=== PATIENT | female | born 1965 | race Caucasian/White ===

== ENCOUNTER 2021-07-13 00:18 | Day surgery (SDC) | payer OTHER, SELFPAY ==
[2021-06-29 14:57] VITALS: BMI 38.7
[2021-07-13 07:49] VITALS: BMI 38.6
[2021-07-13 07:50] VITALS: BP 133/88; PULSE 77; RESP 18; TEMP 36; O2SAT 98
[2021-07-13] MEDS: LACTATED RINGERS 1,000 ML 150 ML IV CONT (08:01)
--- NOTE | 2021-07-13 08:10 | P.PNAN_ITS ---
Anes - Initial Pre Proc Eval Procedure: Operation Date: 07/13/21 08:45 Proposed Procedures p Screening Colonoscopy - Raleigh Montez MD Date/Time: 07/13/21 08:10 Surgeon: Raleigh Montez MD Pre Op Diagnosis: neoplasm screening Patient Data Age: 55 Gender: F Height: 1.68 m Weight: 108.5 kg Last Vital Signs Temp 36.0 C L 07/13/21 07:50 Pulse 77 07/13/21 07:50 Resp 18 07/13/21 07:50 BP 133/88 07/13/21 07:50 Pulse Ox 98 07/13/21 07:50 Allergies Allergy/AdvReac Type Severity Reaction Status Date / Time No Known Allergies Allergy Unknown Verified 07/13/21 07:49 Home Medications Medication Instructions Recorded Confirmed Type cholecalciferol (vitamin D3) 50 2,000 unit PO DAILY 04/13/19 06/29/21 History mcg (2,000 unit) tablet escitalopram oxalate 10 mg tablet 10 mg PO DAILY 11/01/20 06/29/21 History Patient hx anesthesia problems: none Family hx anesthesia problems: none Results Review: All pre-operative results and documents have been reviewed as part of the pre-operative evaluation. FOR[facility]LY [facility], [facility] Past Medical History Medical History Depression Family History Family History Sibling Family history of pancreatic cancer Father Family history of cardiovascular disease Mother Family history of pancreatic cancer, Onset Age: 74 Social History Social History Social History: Patient drinks caffeine once daily. 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[employer] Gender identity (if verbalized by the patient): Female Sexual Orientation (if Verbalized by the Patient): Straight or Heterosexual Anes - Eval Final PreProcedure Day of Procedure 07/13/21 08:10 Patient weight: overweight Heart: regular rate and rhythm Lungs: clear to auscultation Airway: Mallampati scale class II Neurological: alert and oriented Last oral intake: >/= 8 hours ASA classification: II Emergent: no Anesthetic plan: proceed Anesthesia type and monitoring: general GIVS and standard monitoring Results Review: All pre-operative results and documents have been reviewed as part of the pre-operative evaluation. Informed Consent: The patient's anesthetic plan and its attendant risks and benefits were discussed with the patient/family/POA. Questions were solicited and answers provided to the satisfaction of the patient/family/POA.
--- NOTE | 2021-07-13 08:24 | PM.HPGS ---
History of Present Illness History of Present Illness Consent: Risks, benefits, and alternatives have been discussed and questions answered. Patient agrees to proceed with procedure. Chief complaint: neoplasm screening Narrative: Marcela Girard is a 55 year old female here for screening colonoscopy, last one about 10 years ago. Review of Systems Constitutional: Constitutional: Denies headache(s) and Denies weakness Eyes: Eyes: Denies blurry vision ENT: Reports Normal hearing present, Denies headache(s) and Denies neck pain Cardiovascular: Cardiovascular: Denies chest pain and Denies dyspnea Respiratory: Respiratory: Denies dyspnea Gastrointestinal: Gastrointestinal: Reports no additional gastrointestinal complaints Genitourinary: Genitourinary: Denies dysuria Musculoskeletal: Musculoskeletal: Denies neck pain Integumentary/Breasts: Skin/Breast: Denies dry skin Neurologic: Reports Normal hearing present, Denies headache(s) and Denies weakness Psychiatric: Psychiatric: Denies anxiety Endocrine: Endocrine: Denies change in body appearance Hematologic/Lymphatic: Hematologic/Lymphatic: Denies easy bleeding Allergic/Immunologic: Allergic/Immunologic: Denies urticaria PMFSH Past Medical History Medical History Depression Family History Family History Sibling Family history of pancreatic cancer Father Family history of cardiovascular disease Mother Family history of pancreatic cancer, Onset Age: 74 Social History Social History Social History: Patient drinks caffeine once daily. 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 identity (if verbalized by the patient): Female Sexual Orientation (if Verbalized by the Patient): Straight or Heterosexual Meds Home Medications and Allergies Home Medications Medication Instructions Recorded Confirmed Type cholecalciferol (vitamin D3) 50 2,000 unit PO DAILY 04/13/19 06/29/21 History mcg (2,000 unit) tablet escitalopram oxalate 10 mg tablet 10 mg PO DAILY 11/01/20 06/29/21 History Allergies Allergy/AdvReac Type Severity Reaction Status Date / Time No Known Allergies Allergy Unknown Verified 07/13/21 07:49 Vital Signs Vital Signs - 24 hr 07/13/21 07:50 Temperature 96.8 F L Pulse Rate 77 Respiratory Rate 18 Blood Pressure 133/88 Pulse Oximetry 98 Exam Const: General: comfortable and no acute distress HENMT: General nose exam: Normal nares present Eyes: General: appearance normal, both eyes and all related structures Neck: Neck: no JVD Resp: Auscultation: clear to auscultation bilaterally Cardio: Rate: regular rate Rhythm: regular rhythm GI: Inspection: non-distended GI Palp: Yes Soft to palpation Skin: General skin exam: normal color Neuro: General: gait normal Speech: normal speech Extrem: General: normal to inspection Psych: Mental Status: mental status grossly normal Assessment and Plan Assessment and plan (1) Colon cancer screening: Code(s): Z12.11 - Encounter for screening for malignant neoplasm of colon Status: Acute Assessment and Plan: colonoscopy
[2021-07-13 08:51] VITALS: BP 108/68; PULSE 70; RESP 14; O2SAT 98
[2021-07-13 09:01] VITALS: BP 109/77; PULSE 73; RESP 15; O2SAT 92
[2021-07-13 09:11] VITALS: BP 115/81; PULSE 65; RESP 13; O2SAT 96
== END 2021-07-13 09:22 | disposition home or self-care (01) ==
PROVIDERS: PCP Emergency Medicine; Visit Provider Internal Medicine Gastroenterology
PROC: 0DJD8ZZ Inspection of Lower Intestinal Tract, Via Natural or Artificial Opening Endoscopic (ICD-10-PCS; CPT 45378; principal; 2021-07-13 08:45)
DX: Z12.11 Encounter for screening for malignant neoplasm of colon (principal); K63.5 Polyp of colon; F32.9 Major depressive disorder, single episode, unspecified
CPT/HCPCS: 45385; 88305; J2001; J2704; J7120

== ENCOUNTER 2023-05-15 07:18 | Outpatient (CLI) | payer OTHER, SELFPAY ==
--- NOTE | ~2023-05-15 | MM_ITS ---
EXAMINATION: MM screening sharmin BI w brittany HISTORY: Screening mammogram TECHNIQUE: Craniocaudal and mediolateral oblique 3-D tomosynthesis images were obtained and synthetic 2-D images were generated. CAD analysis was submitted and interpreted. COMPARISON: 02/16/2018 bilateral screening mammogram BREAST PARENCHYMAL COMPOSITION: The breasts are heterogeneously dense, which may obscure small masses . FINDINGS: Stable benign fibroglandular asymmetry. Occasional bilateral benign calcifications. There i s no evidence of suspicious mass, calcification, or architectural distortion to suggest malignancy in either breast. There has been no suspicious interval change. IMPRESSION: 1. No mammographic evidence of malignancy. 2. Recommend routine screening mammography in one year. BI-RADS Category 2: Benign finding(s). Reviewed, dictated and finalized at location A. LIFE OFFICER
== END 2023-05-15 07:19 | disposition home or self-care (01) ==
LOC: CHSIMG 07:20
PROVIDERS: PCP Emergency Medicine; Visit Provider Emergency Medicine
DX: Z12.31 Encounter for screening mammogram for malignant neoplasm of breast (principal)
CPT/HCPCS: 77063; 77067

== ENCOUNTER 2024-10-05 01:10 | Day surgery (SDC) | payer OTHER, SELFPAY ==
[2024-09-28 10:38] VITALS: BMI 35.6
--- OUTSIDE RECORDS SUMMARY | 2024-10-05 01:12 | XMS_ITS | Encounter Summary ---
Author Organization [facility] Address [address] [place] [address] Care Team Providers Care Ui Ux Web Developer Name Role Phone Rasta Walker MD Primary Care Provider Encounter Details Date Type Department Care Team (Late st Contact Info) Description 04/06/2003 Outpatient Historical [facility] Maternal and Ground Floor S New [facility] [address] [place] [phone] Tono Jeong MD [address] [facility] [address] [place] [phone] Social History Tobacco Use Types Packs/Day Years Used Date Smoking Tobacco: Never Assessed Comments Unknown Sex and Gender Information Value Date Recorded Sex Assigned at Not on file 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
--- OUTSIDE RECORDS SUMMARY | 2024-10-05 01:12 | XMS_ITS | Encounter Summary ---
Author Organization [facility] Address [address] [place] [address] Care Team Providers Care Airline Pilot Name Role Phone Rasta Walker MD Primary Care Provider Encounter Details Date Type Department Care Team (Late st Contact Info) Description 03/07/2005 Outpatient Historical [facility] Maternal and Ground Floor S [address] [facility] [address] [place] [phone] Alvin Pretty MD [address] [place] [phone] Social History Tobacco Use Types Packs/Day Years Used Date Smoking Tobacco: Never Assessed Comments Unknown Sex and Gender Information Value Date Recorded Sex Assigned at Not on file 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
--- OUTSIDE RECORDS SUMMARY | 2024-10-05 01:12 | XMS_ITS | Encounter Summary ---
Author Organization [facility] Address 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 Gender Identity Not on file Sexual Orientation Not on file documented as of this encounter Plan of Treatment Not on file documented as of this encounter Visit Diagnoses Diagnosis Elderly multigravida with antepartum condition or complication- Primary documented in this encounter Additional Health Concerns Infection Onset Date Last Indicated Resolved Time R/O COVID-19 02/04/2020 02/04/2020 02/05/2020 3:54 AM CDT documented as of this encounter Care Teams Wireless Sales Associate Relationship Specialty Start Date End Date Rasta Walker MD [address] [place] [address] PCP - General Internal Medicine 02/03/20 documented as of this encounter
--- OUTSIDE RECORDS SUMMARY | 2024-10-05 01:12 | XMS_ITS | Encounter Summary ---
Author Organization [facility] Address [address] [place] [address] Care Team Providers Care Systems Auditor Name Role Phone Rasta Walker MD Primary Care Provider Encounter Details Date Type Department Care Team (Late st Contact Info) Description 03/25/2005 Outpatient Historical [facility] Maternal and Ground Floor S [facility] [address] [place] [phone] Tono Jeong MD [address] [facility] [address] [place] [phone] Social History Tobacco Use Types Packs/Day Years Used Date Smoking Tobacco: Never Assessed Comments Unknown Sex and Gender Information Value Date Recorded Sex Assigned at Not on file 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
--- OUTSIDE RECORDS SUMMARY | 2024-10-05 01:12 | XMS_ITS | Encounter Summary ---
Author Organization [facility] Address [address] [place] [address] Care Team Providers Care Acting Manager Name Role Phone Rasta Walker MD Primary Care Provider [phone] Encounter Details Date Type Department Care Team (Late st Contact Info) Description 03/04/2003 Outpatient Historical [facility] Maternal and Ground Floor S [facility] [address] [place] [phone] Alvin Pretty MD [address] [place] [phone] Social History Tobacco Use Types Packs/Day Years Used Date Smoking Tobacco: Never Assessed Comments Unknown Sex and Gender Information Value Date Recorded Sex Assigned at Not on file 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 Sex Female 4:28 AM BOX TENDER Gender Identity Not on file Sexual Orientation Not on file documented as of this encounter Plan of Treatment Not on file documented as of this encounter Visit Diagnoses Not on filedocumented in this encounter Additional Health Concerns Infection Onset Date Last Indicated Resolved Time R/O COVID-19 02/04/2020 02/04/2020 02/05/2020 3:54 AM CDT documented as of this encounter Care Teams Acting Manager Relationship Specialty Start Date End Date Rasta Walker MD [address] [place] [phone] PCP - General Internal Medicine 02/03/20 documented as of this encounter
--- OUTSIDE RECORDS SUMMARY | 2024-10-05 01:12 | XMS_ITS | Encounter Summary ---
Author Organization [facility] Address 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 Gender Identity Not on file Sexual Orientation Not on file documented as of this encounter Plan of Treatment Not on file documented as of this encounter Visit Diagnoses Not on filedocumented in this encounter Additional Health Concerns Infection Onset Date Last Indicated Resolved Time R/O COVID-19 02/04/2020 02/04/2020 02/05/2020 3:5 4 AM CDT documented as of this encounter Care Teams Photogrammetry Airplane Pilot Relationship Specialty Start Date End Date Rasta Walker MD [address] [place] [phone] PCP - General Internal Medicine 02/03/20 documented as of this encounter
--- OUTSIDE RECORDS SUMMARY | 2024-10-05 01:12 | XMS_ITS | Encounter Summary ---
Author Organization [employer] Address 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 Gender Identity Not on file Sexual Orientation Not on file documented as of this encounter Plan of Treatment Not on file documented as of this encounter Procedures Procedure Name Priority Date/Time Associated Diagnosis Comments CHROMOSOME ANALYSIS, AMNIOTIC FLUID Routine 11/13/2004 5:08 PM CDT ALPHA FETOPROTEIN, AMNIOTIC FLUID Routine 11/13/2004 5:08 PM CDT documented in this encounter Results * ALPHA FETOPROTEIN, AMNIOTIC FLUID (11/13/2004 5:08 PM CDT) CYTOGENETICS INDICATIONS Maternal age >34 INTERFACE SYSTEM WEEKS OF GESTATION 17.6 Weeks INTERFACE SYSTEM GEST CALC METHOD US INT ERFACE SYSTEM DATE OF ULTRASOUND 1: 356412:0.000 000:0:0 INTERFACE SYSTEM DATE OF DRAW : 142002:0.000 000:0:0 INTERFACE SYSTEM MULTIPLE OF MEDIAN 0.75 0.00 - 1.90 MoM INTERFACE SYSTEM AFP AMNIOTIC FLD 8.52 ug/mL INT ERFACE SYSTEM AFP REFERENCE RANGE up to 22.80 ug/mL INTERFACE SYSTEM AFP RISK INTERP INTE RFACE SYSTEM Comment: INTERPRETATION: This amniotic fluid AFP is within expected limits for a at this gestational age. A normal amniotic fluid AFP rules out open spina bifida in approximately 96% of fetuses. 11/13/2004 5:08 PM CDT Anthony Ballesteros Jr., MD BODY FLUIDS AND S TOOLS Final Result Performing Organization Address [facility] Phone Number INTERFACE SYSTEM Refer to clinic/hospital department * CHROMOSOME ANALYSIS, AMNIOTIC FLUID (11/13/2004 5:08 PM CDT) Pathologist [facility] CYTOGENETICS SPECIMEN Amniotic Fluid INTERFACE SYSTEM CHROMOSOME RESULTS I NTERFACE SYSTEM Comment: RESULTS: 46,XX Female karyotype-SEE BELOW INTERPRETATION: This analysis shows no evidence of clinically significant numerical or structural chromosome abnormalities. The standard cytogenetic methodology utilized in this analysis does not routinely detect small rearrangements and low level mosaicism, and cannot detect microdeletions. The number of colonies examined does not meet our laboratory standard of 15. However, the overall incidence of mosaicism detected in amniotic fluid samples is reported to be low (0.1-0.3%; Sagrario, L.Y.F., Diagnosis of Chromosomal Abnormalities through Amniocentesis. In Jami Dial ed., Genetic Disorders and the Fetus, 4th edition. [place]: [facility] [employer]. 1998. Pp. 203). 11/13/2004 5:08 PM CDT Anthony Ballesteros Jr., MD BODY FLUIDS AND S TOOLS Final Result Performing Organization Address [facility] Phone Number INTERFACE SYSTEM Refer to clinic/hospital department documented in this encounter Visit Diagnoses Diagnosis Other screening- Primary Other specified screening documented in this encounter Additional Health Concerns Infection Onset Date Last Indicated Resolved Time R/O COVID-19 02/04/2020 02/04/2020 02/05/2020 3:54 AM CDT documented as of this encounter Care Teams Brake Adjuster Relationship Specialty Start Date End Date Rasta Walker MD [address] [phone] PCP - General Internal Medicine 02/03/20 documented as of this encounter
--- OUTSIDE RECORDS SUMMARY | 2024-10-05 01:12 | XMS_ITS | Encounter Summary ---
Author Organization [facility] Address [address] [place] [address] Care Team Providers Care Pasting Inspector Name Role Phone Rasta Walker MD Primary Care Provider Encounter Details Date Type Department Care Team (Latest Contact Info) Description 08/25/2000 Inpatient Historical [facility] PATIENT IN A BED Ambar Faith MD [address] [facility] [address] [place] [address] Other current maternal conditions classifiable elsewhere, antepartum (Primary Dx) Social History Tobacco Use Types Packs/Day Years Used Date Smoking Tobacco: Never Assessed Comments Unknown Sex and Gender Information Value Date Recorded Sex Assigned at Not on file 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 Gender Identity Not on file Sexual Orientation Not on file documented as of this encounter Plan of Treatment Not on file documented as of this encounter Visit Diagnoses Diagnosis Other current maternal conditions classifiable elsewhere, antepartum- Primary documented in this encounter Additional Health Concerns Infection Onset Date Last Indicated Resolved Time R/O COVID-19 02/04/2020 02/04/2020 02/05/2020 3:54 AM CDT documented as of this encounter Care Teams Pasting Inspector Relationship Specialty Start Date End Date Rasta Walker MD [address] [place] [phone] PCP - General Internal Medicine 02/03/20 documented as of this encounter
--- OUTSIDE RECORDS SUMMARY | 2024-10-05 01:12 | XMS_ITS | Encounter Summary ---
Author Organization [facility] Address 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
--- OUTSIDE RECORDS SUMMARY | 2024-10-05 01:12 | XMS_ITS | Encounter Summary ---
Author Organization [facility] Address [address] [place] [address] Care Team Providers Care Auto Wheel Alignment Specialist Name Role Phone Rasta Walker MD Primary Care Provider Encounter Details Date Type Department Care Team (Late st Contact Info) Description 09/02/2000 Outpatient Historical Division of Neurology [address] [facility] [address] [address] Reggie Epstein MD [address] [facility] [address] [place] [address] Social History Tobacco Use Types Packs/Day Years Used Date Smoking Tobacco: Never Assessed Comments Unknown Sex and Gender Information Value Date Recorded Sex Assigned at Not on file 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
--- OUTSIDE RECORDS SUMMARY | 2024-10-05 01:12 | XMS_ITS | Encounter Summary ---
Author Organization [facility] Address [address] [place] [address] Care Team Providers Care Hand Polisher Name Role Phone Rasta Walker MD Primary Care Provider Encounter Details Date Type Department Care Team (Latest Contact Info) Description 09/11/2000 Outpatient Historical [facility] Ambar Faith MD [address] [facility] [address] [address] [place] [address] Unspecified high-risk (Primary Dx) Social History Tobacco Use Types Packs/Day Years Used Date Smoking Tobacco: Never Assessed Comments Unknown Sex and Gender Information Value Date Recorded Sex Assigned at Not on file 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 Gender Identity Not on file Sexual Orientation Not on file documented as of this encounter Plan of Treatment Not on file documented as of this encounter Visit Diagnoses Diagnosis Unspecified high-risk - Primary documented in this encounter Additional Health Concerns Infection Onset Date Last Indicated Resolved Time R/O COVID-19 02/04/2020 02/04/2020 02/05/2020 3:54 AM CDT documented as of this encounter Care Teams Hand Polisher Relationship Specialty Start Date End Date Rasta Walker MD [address] [place] [address] PCP - General Internal Medicine 02/03/20 documented as of this encounter
--- OUTSIDE RECORDS SUMMARY | 2024-10-05 01:12 | XMS_ITS | Encounter Summary ---
Author Organization [employer] Address 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 Gender Identity Not on file Sexual Orientation Not on file documented as of this encounter Plan of Treatment Not on file documented as of this encounter Procedures Procedure Name Priority Date/Time Associated Diagnosis Comments BASIC METABOLIC PANEL Routine 08/25/2007 5:00 AM CDT CBC WITH DIFFERENTIAL Routine 08/25/2007 4:[address] HEAD WO CONTRAST Stat 08/24/2007 2 :54 PM CDT PT AND APTT Stat 08/24/2007 1:35 PM CDT CBC WITH DIFFERENTIAL Stat 08/24/2007 1:35 PM CDT C-REACTIVE PROTEIN Stat 08/24/2007 1: 35 PM CDT COMPREHENSIVE METABOLIC PANEL Stat 08/24/2007 1:35 PM CDT documented in this encounter Results * (ABNORMAL) BASIC METABOLIC PANEL (08/25/2007 5:00 AM CDT) CHLORIDE 108 96 - 108 mmol/L [facility] GLUCOSE 90 65 - 99 mg/dL [facility] SODIUM 137 135 - 145 mmol/L [facility] CALCIUM 8.2(L) 8.4 - 10.2 mg/dL [facility] CO2 24 22 - 30 mmol/L [facility] CREATININE 0.56 0.51 - 0.95 mg/dL [facility] POTASSIUM 3.9 3.5 - 4.9 mmol/L [facility] BUN 13 6 - 20 mg/dL [facility] GFR, >60 >=60 mL/min/1. 7 sq meter [facility] GFR >60 >=60 mL/min/1. 7 sq meter [facility] Comment: Estimated GFR rate interpretative information for both Americans and non- Americans is available on the [facility] Intranet at: [email or web address] Select: Lab Policies and Procedures Select: Reference Ranges - GFR Blood specimen (specimen) 08/25/2007 5:00 AM CDT 08/25/2007 6:39 AM CDT Rachel Zamarripa MD CHEMISTRY ORDERABLES Edited [facility] [address] [place] [address] * (ABNORMAL) CBC WITH DIFFERENTIAL (08/25/2007 4:45 AM CDT) WBC 6.1 4.0 - 9.8 K/uL [facility] MCH 29.7 27.2 - 32.6 pg [facility] MPV 9.1(L) 9.3 - 12.4 fL [facility] HEMATOCRIT 39.8 35.5 - 44.0 % [facility] RDW-STDEV 39.4 37.1 - 48.7 fL [facility] RBC 4.45 3.90 - 4.90 M/uL [facility] MCHC 33.2 31.5 - 35.5 % [facility] MCV 89.4 82.0 - 99.0 fL [facility] PLATELETS 268 140 - 350 K/uL [facility] HEMOGLOBIN 13.2 11.8 - 14.8 g/dL [facility] RDW 12.3 11.5 - 14.5 % [facility] LYMPHOCYTES 35 16 - 45 % [facility] LYMPHOCYTE ABSOLUTE 2.15 0.70 - 4.50 K/uL [facility] BASOPHILS 1 0 - 2 % [facility] BASOPHILS ABSOLUTE 0.04 0.00 - 0.20 K/uL [facility] MONOCYTES 6 3 - 13 % [facility] MONOCYTE ABSOLUTE 0.38 0.10 - 1.30 K/uL [facility] NEUTROPHILS 55 45 - 70 % [facility] NEUTROPHIL ABSOLUTE 3.32 1.90 - 7.00 K/uL [facility] EOSINOPHILS 3 0 - 7 % [facility] EOSINOPHIL ABSOLUTE 0.21 0.00 - 0.70 K/uL [facility] Blood specimen (specimen) 08/25/2007 4:45 AM CDT 08/25/2007 6:39 AM CDT us Rachel Zamarripa MD HEMATOLOGY ORDERABLES Edite d INTERFACE SYSTEM Refer to clinic/hospital department [facility] [address] [place] [address] * CT HEAD WO CONTRAST (08/24/2007 2:54 PM CDT) Anatomical Region Laterality Modality Head Other 08/24/2007 2:54 PM CDT Narrative 08/24/2007 3:14 PM CDT [facility] [address] [place], [place] [address] Admit Date: 08/24/2007 MCGUIREMOE LOFTON Senthil Sex: F Admit Prov: JON SANTANA Date: 1965 Primary Care Prov: FELICIANO LITTLEJOHN CMRN: [id number] [facility] SSN: [id number] IMAGING SERVICES Ordering Prov: N/A Accession Number: [id number] Interpretation CT head without contrast 08/24/2007. History: Headache Findings: The ventricles are normal in size and position without midline shift or mass effect. No intracranial hemorrhage is seen. The riley-white differentiation is preserved. A punctate calcified density is seen at foramen of Monro. There are no abnormal extra-axial collections. The calvarium is intact. Impression: No evidence of acute abnormality. If patient's symptoms persist, MRI study is recommended. . Dictated by: LAVONNE LAUREN 08/24/2007 15:13 Electronically signed by: LAVONNE LAUREN 08/24/2007 15:14 Procedure Note Lavonne Lauren - 08/24/2007 [facility] [address] [place], [place] [address] Admit Date: 08/24/2007 SHAYLA MOE A Sex: F Admit Prov: JON SANTANA Date: 1965 Primary Care Prov: FELICIANO LITTLEJOHN CMRN: [id number] [facility]: [facility] SSN: [id number] IMAGING SERVICES Ordering Prov: N/A Interpretation CT head without contrast 08/24/2007. History: Headache Findings: The ventricles are normal in size and position withoutmidline shift or mass effect. No intracranial hemorrhage is seen. Thegray-white differentiation is preserved. A punctate calcified density is seenat foramen of Monro. There are no abnormal extra-axial collections.The calvarium is intact. Impression: No evidence of acute abnormality. If patient's symptoms persist, MRI study is recommended. . Dictated by: LAVONNE LAUREN 08/24/2007 15:13 Electronically signed by: LAVONNE LAUREN 08/24/2007 15:[address] ORDERABLES Final Result * (ABNORMAL) CBC WITH DIFFERENTIAL (08/24/2007 1:35 PM CDT) RDW 12.4 11.5 - 14.5 % [facility] WBC 7.4 4.0 - 9.8 K/uL [facility] MCH 30.1 27.2 - 32.6 pg [facility] MPV 8.7(L) 9.3 - 12.4 fL [facility] HEMATOCRIT 41.4 35.5 - 44.0 % [facility] RDW-STDEV 39.5 37.1 - 48.7 fL [facility] RBC 4.69 3.90 - 4.90 M/uL [facility] MCHC 34.1 31.5 - 35.5 % [facility] MCV 88.3 82.0 - 99.0 fL [facility] PLATELETS 269 140 - 350 K/uL [facility] HEMOGLOBIN 14.1 11.8 - 14.8 g/dL [facility] EOSINOPHILS 1 0 - 7 % [facility] EOSINOPHIL ABSOLUTE 0.08 0.00 - 0.70 K/uL [facility] NEUTROPHILS 65 45 - 70 % [facility] LYMPHOCYTES 29 16 - 45 % [facility] LYMPHOCYTE ABSOLUTE 2.17 0.70 - 4.50 K/uL [facility] BASOPHILS 1 0 - 2 % [facility] BASOPHILS ABSOLUTE 0.04 0.00 - 0.20 K/uL [facility] MONOCYTES 4 3 - 13 % [facility] MONOCYTE ABSOLUTE 0.30 0.10 - 1.30 K/uL [facility] NEUTROPHIL ABSOLUTE 4.82 1.90 - 7.00 K/uL [facility] Blood specimen (specimen) 08/24/2007 1:35 PM CDT 08/24/2007 2:00 PM CDT John Lockhart DO HEMATOLOGY ORDERABLES Edited INTERFACE SYSTEM Refer to clinic/hospital department [facility] [address] [place] [address] * PT AND APTT (08/24/2007 1:35 PM CDT) PROTIME 14.0 12.7 - 15.1 Seconds [facility] INR 1.1 0.9 - 1.1 [facility] Comment: INR Therapeutic Range: Adult: 2.0 - 3.0 for pulmonary embolism or prophylaxis against venous thrombosis or systemic embolization. 2.0 - 3.0 for patients with tissue heart valves. 2.5 - 3.5 for patients with mechanical heart valves or post SD. Pediatric (12 years and under): 1.5 - 3.0 Although the target range in children is not well established, INR values of 1.5 - 3.0 are recommended for most patients. Higher values have been used in children with prosthetic cardiac valves and hereditary clotting disorders. (<3 days) therapeutic ranges have not been established. PTT 29.6 24.4 - 36.4 Seconds [facility] Comment: PTT Therapeutic Range: Heparin Level PTT (seconds) <0.10 units/mL <53 0.10 - 0.30 units/mL 53 - 67 0.30 - 0.70 units/mL* 67 - 95* 0.70 - 1.00 units/mL 95 - 116 *corresponds to therapeutic range for unfractionated heparin Blood specimen (specimen) 08/24/2007 1:35 PM CDT 08/24/2007 2:00 PM CDT John Lockhart DO HEMATOLOGY ORDERABLES Edited Performing Organization Address City/[facility]/ZIP Co de Phone Number [facility] [address] [place] [address] * C-REACTIVE PROTEIN (08/24/2007 1:35 PM CDT) CRP <0.2 0.0 - 0.8 mg/dL [facility] Blood specimen (specimen) 08/24/2007 1:35 PM CDT 08/24/2007 2:00 PM CDT John Lockhart DO CHEMISTRY ORDERABLES Final Re sult Performing Organization Address [facility]/ZIP Co de Phone Number [facility] [address] [place] [address] * (ABNORMAL) COMPREHENSIVE METABOLIC PANEL (08/24/2007 1:35 PM CDT) CALCIUM 8.5 8.4 - 10.2 mg/dL [facility] ALBUMIN 4.1 3.4 - 4.8 g/dL [facility] CHLORIDE 105 96 - 108 mmol/L [facility] CREATININE 0.52 0.51 - 0.95 mg/dL [facility] ALT 16 0 - 31 U/L [facility] SODIUM 138 135 - 145 mmol/L [facility] ALKALINE PHOSPHATASE 61 35 - 104 U/L [facility] CO2 24 22 - 30 mmol/L [facility] BILIRUBIN TOTAL 1.2(H) 0.2 - 1.0 mg/dL [facility] POTASSIUM 3.8 3.5 - 4.9 mmol/L [facility] TOTAL PROTEIN 6.9 6.3 - 8.6 g/dL [facility] GLUCOSE 87 65 - 99 mg/dL [facility] AST 15 12 - 32 U/L [facility] BUN 9 6 - 20 mg/dL [facility] GFR, >60 >=60 mL/min/1. 7 sq meter [facility] GFR >60 >=60 mL/min/1. 7 sq meter [facility] Comment: Estimated GFR rate interpretative information for both Americans and non- Americans is available on the [facility] Intranet at: [email or web address] Select: Lab Policies and Procedures Select: Reference Ranges - GFR Blood specimen (specimen) 08/24/2007 1:35 PM CDT 08/24/2007 2:00 PM CDT John Lockhart DO CHEMISTRY ORDERABLES Edited [facility] [address] [place] [address] documented in this encounter Visit Diagnoses Not on filedocumented in this encounter Additional Health Concerns Infection Onset Date Last Indicated Resolved Time R/O COVID-19 02/04/2020 02/04/2020 02/05/2020 3:54 AM CDT documented as of this encounter Care Teams Math And Science Instructor Relationship Specialty Start Date End Date Rasta Walker MD [address] [place] [address] PCP - General Internal Medicine 02/03/20 documented as of this encounter
--- OUTSIDE RECORDS SUMMARY | 2024-10-05 01:12 | XMS_ITS | Encounter Summary ---
Author Organization [facility] Address 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 ASSISTANT Gender Identity Not on file Sexual Orientation Not on file documented as of this encounter Plan of Treatment Not on file documented as of this encounter Procedures Procedure Name Priority Date/Time Associated Diagnosis Comments CBC WITH DIFFERENTIAL Routine 04/03/2005 2:54 PM MACHINE ASSISTANT CBC WITH DIFFERENTIAL Routine 04/03/2005 2:54 PM MACHINE ASSISTANT URINALYSIS W/REFLEX MICROSCOPIC Routine 04/03/2005 2:54 PM MACHINE ASSISTANT documented in this encounter Results * (ABNORMAL) URINALYSIS (04/03/2005 2:54 PM MACHINE ASSISTANT) COLOR UA Yellow INTERFACE SYSTEM CLARITY UA Cloudy(A) Clear INTERFACE SYSTEM SPECIFIC GRAVITY UA 1.015 1.001 - 1.035 INTERFACE SYSTEM PH UA 6.5 5.0 - 8.0 INTERFACE SYSTEM LEUKOCYTE ESTERASE UA 1+(A) Negative INTERFACE SYSTEM NITRITE UA Negative Negative INTERFACE SYSTEM PROTEIN UA 1+(A) Negative INTERFACE SYSTEM GLUCOSE UA Negative Negative INTERFACE SYSTEM KETONES UA 1+(A) Negative INTERFACE SYSTEM UROBILINOGEN UA <1 <1 mg/dL INTE RFACE SYSTEM BILIRUBIN UA Negative Negative INTERFA CE SYSTEM BLOOD UA Negative Negative INTERFACE SYSTEM WBC UA 1 0 - 5 /HPF INTERFACE SYSTEM RBC UA 3 0 - 4 /HPF INTERFACE SYSTEM BACTERIA UA 1+(A) None Seen /HPF INTERFACE SYSTEM EPITHELIAL CELLS, URINE 5-10 /HPF INTERFACE SYSTEM AMORPHOUS CRYSTAL Rare /HPF INTERFACE SYSTEM 04/03/2005 2:54 PM MACHINE ASSISTANT Tono Jeong MD URINE ORDERABLES Final R esult Performing Organization Address [facility] Phone Number INTERFACE SYSTEM Refer to clinic/hospital department * (ABNORMAL) CBC WITH DIFFERENTIAL (04/03/2005 2:54 PM MACHINE ASSISTANT) NEUTROPHILS 75(H) 45 - 70 % INTERFAC E SYSTEM LYMPHOCYTES 18 16 - 45 % INTERFAC E SYSTEM MONOCYTES 6 3 - 13 % INTERFACE SYSTEM EOSINOPHILS 1 0 - 7 % INTERFAC E SYSTEM BASOPHILS 0 0 - 2 % INTERFACE SYSTEM NEUTROPHIL ABSOLUTE 7.43(H) 1.90 - 7.00 K/uL INTERFACE SYSTEM LYMPHOCYTE ABSOLUTE 1.77 0.70 - 4.50 K/uL INTERFACE SYSTEM MONOCYTE ABSOLUTE 0.56 0.10 - 1.30 K/uL INTERFACE SYSTEM EOSINOPHIL ABSOLUTE 0.11 0.00 - 0.70 K/uL INTERFACE SYSTEM BASOPHILS ABSOLUTE 0.02 0.00 - 0.20 K/uL INTERFACE SYSTEM 04/03/2005 2:54 PM MACHINE ASSISTANT us Tono Jeong MD HEMATOLOGY ORDERABLES Fi nal Result Performing Organization Address [facility] de Phone Number INTERFACE SYSTEM Refer to clinic/hospital department * (ABNORMAL) CBC WITH DIFFERENTIAL (04/03/2005 2:54 PM MACHINE ASSISTANT) WBC 9.9(H) 4.0 - 9.8 K/uL INTERFACE SYSTEM RBC 4.34 3.90 - 4.90 M/uL INTERFACE SYSTEM HEMOGLOBIN 12.7 11.8 - 14.8 g/dL INTERFACE SYSTEM HEMATOCRIT 37.1 35.5 - 44.0 % INTERFACE SYSTEM MCV 85.5 82.0 - 99.0 fL INTERFACE SYSTEM MCH 29.3 27.2 - 32.6 pg INTERFACE SYSTEM MCHC 34.2 31.5 - 35.5 % INTERFACE SYSTEM RDW 13.6 11.5 - 14.5 % INTERFACE SYSTEM RDW-STDEV 42.2 37.1 - 48.7 fL INTERFACE SYSTEM PLATELETS 257 140 - 350 K/uL INTERFACE SYSTEM MPV 9.0(L) 9.3 - 12.4 fL INTERFACE SYSTEM 04/03/2005 2:54 PM MACHINE ASSISTANT us Tono Jeong MD HEMATOLOGY ORDERABLES Fi nal Result INTERFACE SYSTEM Refer to clinic/hospital department documented in this encounter Visit Diagnoses Diagnosis Previous delivery, delivered, with or without mention of antepartum condition- Primary documented in this encounter Additional Health Concerns Infection Onset Date Last Indicated Resolved Time R/O COVID-19 02/04/2020 02/04/2020 02/05/2020 3:54 AM CDT documented as of this encounter Care Teams Spring Assembler Relationship Specialty Start Date End Date Rasta Walker MD [address] [place] [address] PCP - General Internal Medicine 02/03/20 documented as of this encounter
--- OUTSIDE RECORDS SUMMARY | 2024-10-05 01:12 | XMS_ITS | Encounter Summary ---
Author Organization [facility] Address [address] [place] [address] Care Team Providers Care Bone Tender Name Role Phone Rasta Walker MD Primary Care Provider Encounter Details Date Type Department Care Team (Late st Contact Info) Description 11/13/2004 Outpatient Historical [facility] Maternal and Ground Floor S [facility] [address] [place] [phone] Tono Jeong MD [address] [facility] [address] [place] [phone] Social History Tobacco Use Types Packs/Day Years Used Date Smoking Tobacco: Never Assessed Comments Unknown Sex and Gender Information Value Date Recorded Sex Assigned at Not on file 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 Sex Female 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
--- OUTSIDE RECORDS SUMMARY | 2024-10-05 01:12 | XMS_ITS | Encounter Summary ---
Author Organization [facility] Address [address] [place] [address] Care Team Providers Care Patient Experience Coordinator Name Role Phone Rasta Walker MD Primary Care Provider [phone] Encounter Details Date Type Department Care Team (Latest Contact Info) Description 03/07/2005 Outpatient Historical [facility] Tono Jeong MD [address] [facility] [address] [place] [address] SCREENING NEC (Primary Dx) Social History Tobacco Use Types Packs/Day Years Used Date Smoking Tobacco: Never Assessed Comments Unknown Sex and Gender Information Value Date Recorded Sex Assigned at Not on file Legal Sex Female 4:28 AM DIRECTOR OF SOCIAL SERVICES Gender Identity Not on file Sexual Orientation Not on file documented as of this encounter Plan of Treatment Not on file documented as of this encounter Visit Diagnoses Diagnosis Other screening- Primary Other specified screening documented in this encounter Additional Health Concerns Infection Onset Date Last Indicated Resolved Time R/O COVID-19 02/04/2020 02/04/2020 02/05/2020 3:54 AM CDT documented as of this encounter Care Teams Patient Experience Coordinator Relationship Specialty Start Date End Date Rasta Walker MD [address] [place] [phone] PCP - General Internal Medicine 02/03/20 documented as of this encounter
--- OUTSIDE RECORDS SUMMARY | 2024-10-05 01:12 | XMS_ITS | Encounter Summary ---
Author Organization [facility] Address [address] [place] [address] Care Team Providers Care Bit Sharpener Name Role Phone Rasta Walker MD Primary Care Provider Encounter Details Date Type Department Care Team (Late st Contact Info) Description 01/13/2003 Outpatient Historical [facility] Maternal and Ground Floor S [facility] [address] [place] [phone] Tono Jeong MD [address] [facility] [address] [place] [phone] Social History Tobacco Use Types Packs/Day Years Used Date Smoking Tobacco: Never Assessed Comments Unknown Sex and Gender Information Value Date Recorded Sex Assigned at Not on file 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 Sex Female 4:28 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
--- OUTSIDE RECORDS SUMMARY | 2024-10-05 01:12 | XMS_ITS | Encounter Summary ---
Author Organization [facility] Address [address] [place] [address] Care Team Providers Care Behavioral Health Case Manager Name Role Phone Rasta Walker MD Primary Care Provider Encounter Details Date Type Department Care Team (Latest Contact Info) Description 03/04/2003 Outpatient Historical [facility] Ambar Faith MD [address] [facility] [address] [address] [place] [address] ELDER MULTIGRAVID-ANTEPART UM (Primary Dx) Social History Tobacco Use Types Packs/Day Years Used Date Smoking Tobacco: Never Assessed Comments Unknown Sex and Gender Information Value Date Recorded Sex Assigned at Not on file Legal Sex Female 4:28 AM DISHWASHER BUSSER Gender Identity Not on file Sexual Orientation [...] documented as of this encounter Care Teams Behavioral Health Case Manager Relationship Specialty Start Date End Date Rasta Walker MD [address] [place] [phone] PCP - General Internal Medicine 02/03/20 documented as of this encounter
--- OUTSIDE RECORDS SUMMARY | 2024-10-05 01:12 | XMS_ITS | Encounter Summary ---
Author Organization [employer] Address 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
--- OUTSIDE RECORDS SUMMARY | 2024-10-05 01:12 | XMS_ITS | Encounter Summary ---
Author Organization [facility] Address [address] [place] [address] Care Team Providers Care Disk Sander Name Role Phone Rasta Walker MD Primary Care Provider [phone] Encounter Details Date Type Department Care Team (Late st Contact Info) Description 09/16/2000 Outpatient Historical Division of Neurology [address] [facility] [address] Reggie Epstein MD [address] [facility] [address] [place] [address] Social History Tobacco Use Types Packs/Day Years Used Date Smoking Tobacco: Never Assessed Comments Unknown Sex and Gender Information Value Date Recorded Sex Assigned at Not on file Legal Sex Female 4:28 AM STAFF CONSULTANT Gender Identity Not on file Sexual Orientation Not on file documented as of this encounter Plan of Treatment Not on file documented as of this encounter Visit Diagnoses Not on filedocumented in this encounter Additional Health Concerns Infection Onset Date Last Indicated Resolved Time R/O COVID-19 02/04/2020 02/04/2020 02/05/2020 3:54 AM CDT documented as of this encounter Care Teams Disk Sander Relationship Specialty Start Date End Date Rasta Walker MD [address] [place] [address] PCP - General Internal Medicine 02/03/20 documented as of this encounter
--- OUTSIDE RECORDS SUMMARY | 2024-10-05 01:12 | XMS_ITS | Encounter Summary ---
Author Organization [facility] Address [address] [place] [address] Care Team Providers Care Salvage Engineering Technician Name Role Phone Rasta Walker MD Primary Care Provider Encounter Details Date Type Department Care Team (Late st Contact Info) Description 01/04/2005 Outpatient Historical [facility] Maternal and Ground Floor [address] [facility] [address] [place] [address] Tono Jeong MD [address] [facility] [address] [place] [phone] Social History Tobacco Use Types Packs/Day Years Used Date Smoking Tobacco: Never Assessed Comments Unknown Sex and Gender Information Value Date Recorded Sex Assigned at Not on file Legal Sex Female 4:28 AM 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 OPERATOR Gender Identity Not on file Sexual Orientation Not on file documented as of this encounter Plan of Treatment Not on file documented as of this encounter Visit Diagnoses Not on filedocumented in this encounter Additional Health Concerns Infection Onset Date Last Indicated Resolved Time R/O COVID-19 02/04/2020 02/04/2020 02/05/2020 3:54 AM CDT documented as of this encounter Care Teams Salvage Engineering Technician Relationship Specialty Start Date End Date Rasta aWlker MD [address] [place] [address] PCP - General Internal Medicine 02/03/20 documented as of this encounter
--- OUTSIDE RECORDS SUMMARY | 2024-10-05 01:12 | XMS_ITS | Encounter Summary ---
Author Organization [facility] Address [address] [place] [address] Care Team Providers Care Washing Machine Striper Name Role Phone Rasta Walker MD Primary Care Provider Encounter Details Date Type Department Care Team (Late st Contact Info) Description 08/26/2000 Outpatient Historical Division of Neurology [address] [facility] [address] Reggie Epstein MD [address] [facility] [address] [place] [address] Social History Tobacco Use Types Packs/Day Years Used Date Smoking Tobacco: Never Assessed Comments Unknown Sex and Gender Information Value Date Recorded Sex Assigned at Not on file Legal Sex Female 4:28 AM MATHEMATICIAN Gender Identity Not on file Sexual Orientation Not on file documented as of this encounter Plan of Treatment Not on file documented as of this encounter Visit Diagnoses Not on filedocumented in this encounter Additional Health Concerns Infection Onset Date Last Indicated Resolved Time R/O COVID-19 02/04/2020 02/04/2020 02/05/2020 3:54 AM CDT documented as of this encounter Care Teams Washing Machine Striper Relationship Specialty Start Date End Date Rasta Walker MD [address] [place] [address] PCP - General Internal Medicine 02/03/20 documented as of this encounter
--- OUTSIDE RECORDS SUMMARY | 2024-10-05 01:12 | XMS_ITS | Encounter Summary ---
Author Organization [facility] Address 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 Gender Identity Not on file Sexual Orientation Not on file documented as of this encounter Plan of Treatment Not on file documented as of this encounter Visit Diagnoses Diagnosis Elderly primigravida, antepartum- Primary documented in this encounter Additional Health Concerns Infection Onset Date Last Indicated Resolved Time R/O COVID-19 02/04/2020 02/04/2020 02/05/2020 3:54 AM CDT documented as of this encounter Care Teams Preventive Maintenance Engineer Relationship Specialty Start Date End Date Rasta Walker MD [address] [place] [address] PCP - General Internal Medicine 02/03/20 documented as of this encounter
--- OUTSIDE RECORDS SUMMARY | 2024-10-05 01:13 | XMS_ITS | Encounter Summary ---
Author Organization [facility] Address 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 Sex 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 Gender Identity Not on file Sexual Orientation Not on file documented as of this encounter Plan of Treatment Not on file documented as of this encounter Visit Diagnoses Diagnosis Unspecified antepartum hemorrhage, antepartum- Primary documented in this encounter Additional Health Concerns Infection Onset Date Last Indicated Resolved Time R/O COVID-19 02/04/2020 02/04/2020 02/05/2020 3:54 AM CDT documented as of this encounter Care Teams Funeral Service Manager Relationship Specialty Start Date End Date Rasta Walker MD [address] [place] [address] PCP - General Internal Medicine 02/03/20 documented as of this encounter
--- OUTSIDE RECORDS SUMMARY | 2024-10-05 01:13 | XMS_ITS | Encounter Summary ---
Author Organization [facility] Address [address] [place] [address] Care Team Providers Care Organ Pipe Voicer Name Role Phone Rasta Walker MD Primary Care Provider Encounter Details Date Type Department Care Team (Late st Contact Info) Description 12/15/2002 Outpatient Historical [facility] Maternal and Ground Floor S [facility] [address] [place] [address] Tono Jeong MD [address] [facility] [address] [place] [phone] Social History Tobacco Use Types Packs/Day Years Used Date Smoking Tobacco: Never Assessed Comments Unknown Sex and Gender Information Value Date Recorded Sex Assigned at Not on file Legal Sex Female 4:28 AM PREBOARDER Gender Identity Not on file Sexual Orientation Not on file documented as of this encounter Plan of Treatment Not on file documented as of this encounter Visit Diagnoses Not on filedocumented in this encounter Additional Health Concerns Infection Onset Date Last Indicated Resolved Time R/O COVID-19 02/04/2020 02/04/2020 02/05/2020 3:54 AM CDT documented as of this encounter Care Teams Organ Pipe Voicer Relationship Specialty Start Date End Date Rasta Walker MD [address] [place] [address] PCP - General Internal Medicine 02/03/20 documented as of this encounter
--- OUTSIDE RECORDS SUMMARY | 2024-10-05 01:13 | XMS_ITS | Encounter Summary ---
Author Organization [facility] Address 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 REVIEW 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
--- OUTSIDE RECORDS SUMMARY | 2024-10-05 01:13 | XMS_ITS | Encounter Summary ---
Author Organization [facility] Address [address] [place] [address] Care Team Providers Care Oven Unloader Name Role Phone Rasta Walker MD Primary Care Provider Encounter Details Date Type Department Care Team (Late st Contact Info) Description 10/07/2000 Outpatient Historical Division of Neurology [address] [facility] [address] Reggie Epstein MD [address] [facility] [address] [place] [address] Social History Tobacco Use Types Packs/Day Years Used Date Smoking Tobacco: Never Assessed Comments Unknown Sex and Gender Information Value Date Recorded Sex Assigned at Not on file 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 Sex Female 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
--- OUTSIDE RECORDS SUMMARY | 2024-10-05 01:13 | XMS_ITS | Encounter Summary ---
Author Organization [employer] [facility] Address 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
--- OUTSIDE RECORDS SUMMARY | 2024-10-05 01:13 | XMS_ITS | Encounter Summary ---
Author Organization [facility] Address [address] [place] [address] Care Team Providers Care Secondary Education Professor Name Role Phone Rasta Walker MD Primary Care Provider [phone] Encounter Details Date Type Department Care Team (Late st Contact Info) Description 10/07/2001 Outpatient Historical [place] Maternal and Ground Floor S [facility] [address] [facility] [place] [address] Reggie Whitlock MD NO ADDRESS ON FILE Social History Tobacco Use Types Packs/Day Years Used Date Smoking Tobacco: Never Assessed Comments Unknown Sex and Gender Information Value Date Recorded Sex Assigned at Not on file Legal Sex Female 4:28 AM JOB DEVELOPMENT SPECIALIST Gender Identity Not on file Sexual Orientation Not on file documented as of this encounter Plan of Treatment Not on file documented as of this encounter Visit Diagnoses Not on filedocumented in this encounter Additional Health Concerns Infection Onset Date Last Indicated Resolved Time R/O COVID-19 02/04/2020 02/04/2020 02/05/2020 3:54 AM CDT documented as of this encounter Care Teams Secondary Education Professor Relationship Specialty Start Date End Date Rasta Walker MD [address] [place] [address] PCP - General Internal Medicine 02/03/20 documented as of this encounter
--- OUTSIDE RECORDS SUMMARY | 2024-10-05 01:13 | XMS_ITS | Encounter Summary ---
Author Organization [employer] [facility] Address [address] [place] [address] Care Team Providers Care Workers Compensation Paralegal Name Role Phone Rasta Walker MD Primary Care Provider [phone] Encounter Details Date Type Department Care Team (Latest Contact Info) Description 10/13/2000 Outpatient Historical [facility] Ambar Faith MD [address] [facility] [address] [place] [address] Unspecified high-risk (Primary Dx) Social History Tobacco Use Types Packs/Day Years Used Date Smoking Tobacco: Never Assessed Comments Unknown Sex and Gender Information Value Date Recorded Sex Assigned at Not on file Legal Sex Female 4:28 AM RECONCILIATION COORDINATOR Gender Identity Not on file Sexual Orientation Not on file documented as of this encounter Plan of Treatment Not on file documented as of this encounter Visit Diagnoses Diagnosis Unspecified high-risk - Primary documented in this encounter Additional Health Concerns Infection Onset Date Last Indicated Resolved Time R/O COVID-19 02/04/2020 02/04/2020 02/05/2020 3:54 AM CDT documented as of this encounter Care Teams Workers Compensation Paralegal Relationship Specialty Start Date End Date Rasta Walker MD [address] [place] [address] PCP - General Internal Medicine 02/03/20 documented as of this encounter
--- OUTSIDE RECORDS SUMMARY | 2024-10-05 01:13 | XMS_ITS | Encounter Summary ---
Author Organization [facility] Address [address] [place] [address] Care Team Providers Care Optimization Manager Name Role Phone Rasta Walker MD Primary Care Provider Encounter Details Date Type Department Care Team (Late st Contact Info) Description 11/13/2001 Outpatient Historical [facility] Maternal and Ground Floor S [facility] [address] [place] [address] Marjan Chacon MD [address] [place] [address] Social History Tobacco Use Types Packs/Day Years Used Date Smoking Tobacco: Never Assessed Comments Unknown Sex and Gender Information Value Date Recorded Sex Assigned at Not on file Legal Sex Female 4:28 AM MAINSTREAMING FACILITATOR Gender Identity Not on file Sexual Orientation Not on file documented as of this encounter Plan of Treatment Not on file documented as of this encounter Visit Diagnoses Not on filedocumented in this encounter Additional Health Concerns Infection Onset Date Last Indicated Resolved Time R/O COVID-19 02/04/2020 02/04/2020 02/05/2020 3:54 AM CDT documented as of this encounter Care Teams Optimization Manager Relationship Specialty Start Date End Date Rasta Walker MD [address] [place] [phone] PCP - General Internal Medicine 02/03/20 documented as of this encounter
--- OUTSIDE RECORDS SUMMARY | 2024-10-05 01:13 | XMS_ITS | Encounter Summary ---
Author Organization [facility] Address 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
--- OUTSIDE RECORDS SUMMARY | 2024-10-05 01:13 | XMS_ITS | Encounter Summary ---
Author Organization [facility] Address 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 Gender Identity Not on file Sexual Orientation Not on file documented as of this encounter Plan of Treatment Not on file documented as of this encounter Visit Diagnoses Diagnosis Backache, unspecified documented in this encounter Additional Health Concerns Infection Onset Date Last Indicated Resolved Time R/O COVID-19 02/04/2020 02/04/2020 02/05/2020 3:54 AM CDT documented as of this encounter Care Teams Quilting Supervisor Relationship Specialty Start Date End Date Rasta Walker MD [address] [place] [address] PCP - General Internal Medicine 02/03/20 documented as of this encounter
--- OUTSIDE RECORDS SUMMARY | 2024-10-05 01:13 | XMS_ITS | Encounter Summary ---
Author Organization [facility] Address 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 Sex Female 4:28 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 ROOM 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 Gender Identity Not on file Sexual Orientation Not on file documented as of this encounter Plan of Treatment Not on file documented as of this encounter Visit Diagnoses Diagnosis Other and unspecified uterine inertia, with delivery- Primary documented in this encounter Additional Health Concerns Infection Onset Date Last Indicated Resolved Time R/O COVID-19 02/04/2020 02/04/2020 02/05/2020 3:54 AM CDT documented as of this encounter Care Teams Skip Operator Relationship Specialty Start Date End Date Rasta Walker MD [address] [place] [phone] PCP - General Internal Medicine 02/03/20 documented as of this encounter
--- OUTSIDE RECORDS SUMMARY | 2024-10-05 01:13 | XMS_ITS | Encounter Summary ---
Author Organization [facility] Address [address] [place] [address] Care Team Providers Care Manager Quantitative Name Role Phone Rasta Walker MD Primary Care Provider [phone] Encounter Details Date Type Department Care Team (Latest Contact Info) Description 09/16/2000 Inpatient Historical HIS PATIENT IN A BED Reggie Epstein MD [address] [facility] [address] [place] [address] Headache(784.0) (Primary Dx) Social History Tobacco Use Types Packs/Day Years Used Date Smoking Tobacco: Never Assessed Comments Unknown Sex and Gender Information Value Date Recorded Sex Assigned at Not on file Legal Sex Female 4:28 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 Gender Identity Not on file Sexual Orientation Not on file documented as of this encounter Plan of Treatment Not on file documented as of this encounter Visit Diagnoses Diagnosis Headache(784.0)- Primary Headache documented in this encounter Additional Health Concerns Infection Onset Date Last Indicated Resolved Time R/O COVID-19 02/04/2020 02/04/2020 02/05/2020 3:54 AM CDT documented as of this encounter Care Teams Manager Quantitative Relationship Specialty Start Date End Date Rasta Walker MD [address] [place] [phone] PCP - General Internal Medicine 02/03/20 documented as of this encounter
--- OUTSIDE RECORDS SUMMARY | 2024-10-05 01:13 | XMS_ITS | Encounter Summary ---
Author Organization [facility] Address 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
--- OUTSIDE RECORDS SUMMARY | 2024-10-05 01:13 | XMS_ITS | Encounter Summary ---
Author Organization [facility] Address [address] [place] [address] Care Team Providers Care Performance Makeup Artist Name Role Phone Rasta Walker MD Primary Care Provider [phone] Encounter Details Date Type Department Care Team (Latest Contact Info) Description 06/13/2001 Outpatient Historical [facility] PATIENT IN A BED Ambar Faith MD [address] [facility] [address] [place] [address] HEMORR EARLY PREG-ANTEPART (Primary Dx) Social History Tobacco Use Types Packs/Day Years Used Date Smoking Tobacco: Never Assessed Comments Unknown Sex and Gender Information Value Date Recorded Sex Assigned at Not on file 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 Sex Female 4:28 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 Gender Identity Not on file Sexual Orientation Not on file documented as of this encounter Plan of Treatment Not on file documented as of this encounter Visit Diagnoses Diagnosis Unspecified hemorrhage in early , antepartum- Primary documented in this encounter Additional Health Concerns Infection Onset Date Last Indicated Resolved Time R/O COVID-19 02/04/2020 02/04/2020 02/05/2020 3:54 AM CDT documented as of this encounter Care Teams Performance Makeup Artist Relationship Specialty Start Date End Date Rasta Walker MD [address] [place] [phone] PCP - General Internal Medicine 02/03/20 documented as of this encounter
--- OUTSIDE RECORDS SUMMARY | 2024-10-05 01:13 | XMS_ITS | Encounter Summary ---
Author Organization [facility] Address [address] [place] [address] Care Team Providers Care Digital Cartographer Name Role Phone Rasta Walker MD Primary Care Provider [phone] Encounter Details Date Type Department Care Team (Late st Contact Info) Description 12/04/2001 Outpatient Historical [facility] Maternal and Ground Floor [address] [facility] [address] [place] [address] Reggie Whitlock MD NO ADDRESS ON FILE Social History Tobacco Use Types Packs/Day Years Used Date Smoking Tobacco: Never Assessed Comments Unknown Sex and Gender Information Value Date Recorded Sex Assigned at Not on file 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 Female 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
--- OUTSIDE RECORDS SUMMARY | 2024-10-05 01:13 | XMS_ITS | Clinical Summary ---
Author Organization [facility] Address [address] [place] [address] Phone Care Team Providers Care Forensic Locksmith Name Role Phone Rasta Walker MD Primary Care Provider [phone] Allergies No known active allergies Medications escitalopram oxalate (LEXAPRO) 10 mg tablet Take 10 mg by mouth daily. Active baclofen 5 mg Tablet Take 5 mg by mouth 3 times daily as needed for Pain. 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 CABIN CLASS Gender Identity Not on file Sexual Orientation Not on file Last Filed Vital Signs Vital Sign Reading Time Taken Comments Blood Pressure 120/74 02/07/2020 9:53 AM CDT Pulse 67 02/06/2020 5:36 PM CDT Temperature 36.8 C (98.2 F) 02/07/2020 9:53 AM CDT Respiratory Rate 16 02/07/2020 9:53 AM CDT Oxygen Saturation 100% 02/07/2020 9:53 AM CDT Inhaled Oxygen Concentration - - Weight 93.1 kg (205 lb 4.8 oz) 02/03/2020 11:43 PM CDT Height 167.6 cm (5' 6 ) 02/03/2020 11:43 PM CDT Body Mass Index 33.14 02/03/2020 11:43 PM CDT Plan of Treatment Health Maintenance Due Date Last Done Comments DTAP/TDAP/TD VACCINES (1 - Tdap) 1985 HEPATITIS B VACCINES (1 of 3 - 19+ 3-dose series) 08/17 HPV/Cotest (21-29) 08/31/1987 CERVICAL CANCER SCREENING 1996 HPV/Cotest (30-65) 1996 PAP SMEAR 1996 BREAST CANCER SCREENING 2006 COLORECTAL SCREENING 08/31/2011 Colorectal Cancer Screening 08/31/2011 FIT-DNA Q 3 years 08/31/2011 FIT/FOBT Q 1 year 08/31/2011 Flex Sig/CT Colonography Q 5 years 08/31/2011 ZOSTER VACCINE (1 of 2) 2016 INFLUENZA VACCINE (#1) 2023 Insurance Advance Directives For more information, please contact: [phone] * Full Code (Latest Code Status on File) Date Activated Date Inactivated Comments 02/03/2020 11:16 PM 02/07/2020 3:18 PM Care Teams Forensic Locksmith Relationship Specialty Start Date End Date Rasta Walker MD [address] [place] [phone] PCP - General Internal Medicine 02/03/20
--- OUTSIDE RECORDS SUMMARY | 2024-10-05 01:13 | XMS_ITS | Encounter Summary ---
Author Organization [facility] Address [address] [place] [address] Care Team Providers Care Clutch Operator Name Role Phone Rasta Walker MD Primary Care Provider Encounter Details Date Type Department Care Team (Late st Contact Info) Description 09/25/2000 Outpatient Historical [facility] Reggie Epstein MD [address] [facility] [address] [place] [address] Special screening for other specified conditions(V82.89) (Primary Dx) Social History Tobacco Use Types Packs/Day Years Used Date Smoking Tobacco: Never Assessed Comments Unknown Sex and Gender Information Value Date Recorded Sex Assigned at Not on file Legal Sex Female 4:28 AM CHASER TAR Gender Identity Not on file Sexual Orientation Not on file documented as of this encounter Plan of Treatment Not on file documented as of this encounter Visit Diagnoses Diagnosis Special screening for other specified conditions(V82.89)- Primary Special screening for other specified conditions documented in this encounter Additional Health Concerns Infection Onset Date Last Indicated Resolved Time R/O COVID-19 02/04/2020 02/04/2020 02/05/2020 3:54 AM CDT documented as of this encounter Care Teams Clutch Operator Relationship Specialty Start Date End Date Rasta Walker MD [address] [place] [phone] PCP - General Internal Medicine 02/03/20 documented as of this encounter
--- OUTSIDE RECORDS SUMMARY | 2024-10-05 01:13 | XMS_ITS | Encounter Summary ---
Author Organization [facility] Address 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
--- OUTSIDE RECORDS SUMMARY | 2024-10-05 01:13 | XMS_ITS | Encounter Summary ---
Author Organization [facility] Address [address] [place] [address] Care Team Providers Care Laborer Gold Leaf Name Role Phone Rasta Walker MD Primary Care Provider Encounter Details Date Type Department Care Team (Late st Contact Info) Description 11/09/2002 Outpatient Historical [facility] Maternal and Ground Floor S [facility] [address] [place] [address] Tono Jeong MD [address] [facility] [address] [place] [phone] Social History Tobacco Use Types Packs/Day Years Used Date Smoking Tobacco: Never Assessed Comments Unknown Sex and Gender Information Value Date Recorded Sex Assigned at Not on file Legal Sex Female 4:28 AM MATTRESS STUFFER Gender Identity Not on file Sexual Orientation Not on file documented as of this encounter Plan of Treatment Not on file documented as of this encounter Visit Diagnoses Not on filedocumented in this encounter Additional Health Concerns Infection Onset Date Last Indicated Resolved Time R/O COVID-19 02/04/2020 02/04/2020 02/05/2020 3:54 AM CDT documented as of this encounter Care Teams Laborer Gold Leaf Relationship Specialty Start Date End Date Rasta Walker MD [address] [place] [address] PCP - General Internal Medicine 02/03/20 documented as of this encounter
--- OUTSIDE RECORDS SUMMARY | 2024-10-05 01:13 | XMS_ITS | Encounter Summary ---
Author Organization [facility] Address [address] [place] [address] Care Team Providers Care Production Engine Repairer Name Role Phone Rasta Walker MD Primary Care Provider [phone] Encounter Details Date Type Department Care Team (Latest Contact Info) Description 10/07/2001 Outpatient Historical [facility] Ambar Faith MD [address] [facility] [address] [place] [address] ANTEPARTUM HEMORR NOS-ANTEPAR (Primary Dx) Social History Tobacco Use Types Packs/Day Years Used Date Smoking Tobacco: Never Assessed Comments Unknown Sex and Gender Information Value Date Recorded Sex Assigned at Not on file 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 Gender Identity Not on file Sexual Orientation Not on file documented as of this encounter Plan of Treatment Not on file documented as of this encounter Visit Diagnoses Diagnosis Unspecified antepartum hemorrhage, antepartum- Primary documented in this encounter Additional Health Concerns Infection Onset Date Last Indicated Resolved Time R/O COVID-19 02/04/2020 02/04/2020 02/05/2020 3:54 AM CDT documented as of this encounter Care Teams Production Engine Repairer Relationship Specialty Start Date End Date Rasta Walker MD [address] [place] [phone] PCP - General Internal Medicine 02/03/20 documented as of this encounter
--- OUTSIDE RECORDS SUMMARY | 2024-10-05 01:13 | XMS_ITS | Encounter Summary ---
Author Organization [facility] Address [address] [place] [address] Care Team Providers Care Stakeholder Manager Name Role Phone Rasta Walker MD Primary Care Provider Encounter Details Date Type Department Care Team (Latest Contact Info) Description 06/15/2001 Outpatient Historical [facility] Ambar Faith MD [address] [facility] [address] [place] [address] ANTEPARTUM HEMORR NOS-UNSPEC (Primary Dx) Social History Tobacco Use Types Packs/Day Years Used Date Smoking Tobacco: Never Assessed Comments Unknown Sex and Gender Information Value Date Recorded Sex Assigned at Not on file Legal Sex Female 4:28 AM BLOOM CONVEYOR OPERATOR Gender Identity Not on file Sexual Orientation Not on file documented as of this encounter Plan of Treatment Not on file documented as of this encounter Visit Diagnoses Diagnosis Unspecified antepartum hemorrhage, unspecified as to episode of care(641.90)- Primary Unspecified antepartum hemorrhage, unspecified as to episode of care documented in this encounter Additional Health Concerns Infection Onset Date Last Indicated Resolved Time R/O COVID-19 02/04/2020 02/04/2020 02/05/2020 3:54 AM CDT documented as of this encounter Care Teams Stakeholder Manager Relationship Specialty Start Date End Date Rasta Walker MD [address] [place] [address] PCP - General Internal Medicine 02/03/20 documented as of this encounter
--- OUTSIDE RECORDS SUMMARY | 2024-10-05 01:13 | XMS_ITS | Encounter Summary ---
Author Organization [facility] Address [address] [place] [address] Care Team Providers Care Ms Access Database Developer Name Role Phone Rasta Walker MD Primary Care Provider [phone] Encounter Details Date Type Department Care Team (Late st Contact Info) Description 11/23/2001 Outpatient Historical [facility] Maternal and Ground Floor S [facility] [address] [place] [address] Marjan Chacon MD [address] [place] [address] Social History Tobacco Use Types Packs/Day Years Used Date Smoking Tobacco: Never Assessed Comments Unknown Sex and Gender Information Value Date Recorded Sex Assigned at Not on file Legal Sex Female 4:28 AM ENVELOPE ADJUSTER Gender Identity Not on file Sexual Orientation Not on file documented as of this encounter Plan of Treatment Not on file documented as of this encounter Visit Diagnoses Not on filedocumented in this encounter Additional Health Concerns Infection Onset Date Last Indicated Resolved Time R/O COVID-19 02/04/2020 02/04/2020 02/05/2020 3:54 AM CDT documented as of this encounter Care Teams Ms Access Database Developer Relationship Specialty Start Date End Date Rasta Walker MD [address] [place] [phone] PCP - General Internal Medicine 02/03/20 documented as of this encounter
--- OUTSIDE RECORDS SUMMARY | 2024-10-05 01:13 | XMS_ITS | Encounter Summary ---
Author Organization [facility] Address [address] [place] [address] Care Team Providers Care Industrial Security Analyst Name Role Phone Rasta Walker MD Primary Care Provider Encounter Details Date Type Department Care Team (Latest Contact Info) Description 12/15/2002 Outpatient Historical [facility] Ambar Faith MD [address] [facility] [address] [place] [address] OTHER ADVANCED MATERN AGE-ANTEPART (Primary Dx) Social History Tobacco Use Types Packs/Day Years Used Date Smoking Tobacco: Never Assessed Comments Unknown Sex and Gender Information Value Date Recorded Sex Assigned at Not on file Legal Sex Female 4:28 AM TEST TECHNICIAN Gender Identity Not on file Sexual [...] documented as of this encounter Care Teams Industrial Security Analyst Relationship Specialty Start Date End Date Rasta Walker MD [address] [place] [address] PCP - General Internal Medicine 02/03/20 documented as of this encounter
--- OUTSIDE RECORDS SUMMARY | 2024-10-05 01:13 | XMS_ITS | Encounter Summary ---
Author Organization [facility] Address [address] [place] [address] Care Team Providers Care Tipple Tender Name Role Phone Rasta Walker MD Primary Care Provider [phone] Encounter Details Date Type Department Care Team (Late st Contact Info) Description 10/13/2001 Outpatient Historical [facility] Maternal and Ground Floor S [facility] [address] [facility] [place] [address] Reggie Whitlock MD NO ADDRESS ON FILE Social History Tobacco Use Types Packs/Day Years Used Date Smoking Tobacco: Never Assessed Comments Unknown Sex and Gender Information Value Date Recorded Sex Assigned at Not on file Legal Sex Female 4:28 AM LOGISTICS PROJECT MANAGER Gender Identity Not on file Sexual Orientation Not on file documented as of this encounter Plan of Treatment Not on file documented as of this encounter Visit Diagnoses Not on filedocumented in this encounter Additional Health Concerns Infection Onset Date Last Indicated Resolved Time R/O COVID-19 02/04/2020 02/04/2020 02/05/2020 3:54 AM CDT documented as of this encounter Care Teams Tipple Tender Relationship Specialty Start Date End Date Rasta Walker MD [address] [place] [address] PCP - General Internal Medicine 02/03/20 documented as of this encounter
--- OUTSIDE RECORDS SUMMARY | 2024-10-05 01:13 | XMS_ITS | Clinical Summary ---
Author Organization [facility] Address [address] [place] [address] Care Team Providers Care Guest Request Runner Name Role Phone Unavailable Primary Care Provider Unavailabl e Social History Tobacco Use Types Packs/Day Years Used Date Smoking Tobacco: Never Assessed Comments Unknown Sex and Gender Information Value Date Recorded Sex Assigned at Not on file Legal Sex Female 9:17 PM CDT Gender Identity Not on file Sexual Orientation Not on file Last Filed Vital Signs Vital Sign Reading Time Taken Comments Blood Pressure 112/70 12/07/2015 1:56 PM CDT Pulse 78 12/07/2015 1:56 PM CDT Temperature - - Respiratory Rate - - Oxygen Saturation - - Inhaled Oxygen Concentration - - Weight 98 kg (216 lb) 12/07/2015 1:56 PM CDT Height 170.2 cm (5' 7 ) 12/07/2015 1:56 PM CDT Body Mass Index 33.83 12/07/2015 1:56 PM CDT Plan of Treatment Health Maintenance Due Date Last Done Comments Cervical Cancer Screening Pa p Smear (Age 30 to 64) Every 3 Years 1966 Colorectal Cancer Screening Colonoscopy (10 Years) 1966 Annual Physical 1969 Hepatitis C 1984 DTaP, Tdap and Td Vaccines ( 1 - Tdap) 1985 Hepatitis B Vaccines (1 of 3 - 19+ 3-dose series) 1985 Cervical Cancer Screening Pa p with HPV Testing (Age 30 to 64) Every 5 Years 1996 Cervical Cancer Screening with HPV 1996 Mammogram Screening 2006 Pneumococcal Vaccine: 50+ Ye ars (1 of 1 - PCV) 2016 Zoster Vaccines (1 of 2) 2016 COVID-19 Vaccine (2023-2 5 season) 2024 Meningococcal B Vaccine Aged Out No l onger eligible based on patient's age to complete this topic Meningococcal Vaccine Aged Out No lisa celeste eligible based on patient's age to complete this topic RSV Immunizations Under 20 Months Aged Out No longer eligible based on patient's age to complete this topic
--- OUTSIDE RECORDS SUMMARY | 2024-10-05 01:13 | XMS_ITS | Encounter Summary ---
Author Organization [facility] Address [address] [place] [address] Care Team Providers Care Water Treatment Specialist Name Role Phone Rasta Walker MD Primary Care Provider [phone] Encounter Details Date Type Department Care Team (Late st Contact Info) Description 11/27/2001 Outpatient Historical [facility] Maternal and Ground Floor S [facility] [address] [place] [address] Marjan Chacon MD [address] [place] [address] Social History Tobacco Use Types Packs/Day Years Used Date Smoking Tobacco: Never Assessed Comments Unknown Sex and Gender Information Value Date Recorded Sex Assigned at Not on file Legal Sex Female 4:28 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 TRACTOR MECHANIC Gender Identity Not on file Sexual Orientation Not on file documented as of this encounter Plan of Treatment Not on file documented as of this encounter Visit Diagnoses Not on filedocumented in this encounter Additional Health Concerns Infection Onset Date Last Indicated Resolved Time R/O COVID-19 02/04/2020 02/04/2020 02/05/2020 3:54 AM CDT documented as of this encounter Care Teams Water Treatment Specialist Relationship Specialty Start Date End Date Rasta Walker MD [address] [place] [phone] PCP - General Internal Medicine 02/03/20 documented as of this encounter
--- NOTE | 2024-10-05 07:32 | WPDANESEPPF ---
Anes - Initial Pre Proc Eval Procedure: Operation Date: 10/05/24 09:00 Proposed Procedures p Screening Colonoscopy - Raleigh Montez MD Date/Time: 10/05/24 07:32 Surgeon: Raleigh Montez MD Pre Op Diagnosis: Hx of polyps Patient Data Age: 59 Gender: F Height: 1.68 m Weight: 100 kg Allergies Allergy/AdvReac Type Severity Reaction Status Date / Time No Known Allergies Allergy Unknown Verified 10/05/24 08:04 Home Medications Medication Instructions Recorded Confirmed Type tirzepatide (weight loss) 7.5 7.5 mg (0.5 mL) subcut WEEKLY #2 mL 09/29/24 10/05/24 Rx mg/0.5 mL subcutaneous pen injector (Zepbound) Patient hx anesthesia problems: none Family hx anesthesia problems: none Results Review: All pre-operative results and documents have been reviewed as part of the pre-operative evaluation. [facility] Past Medical History Medical History (Updated 10/05/24 @ 07:32 by Frank Urena DO) Anxiety Fatigue Calculus of gallbladder with chronic cholecystitis Vitamin D deficiency Hyperbilirubinemia Gastroesophageal reflux disease without esophagitis Breast mass, left Breast lesion on mammography Acute non-recurrent maxillary sinusitis Abnormal LFTs Depression Surgical History Surgical History S/P cholecystectomy Family History Family History Sibling Family history of pancreatic cancer Father Family history of cardiovascular disease Mother Family history of pancreatic cancer, Onset Age: 74 Social History Social History Social History: Patient drinks caffeine once daily. Smoking status: Never smoker Second hand tobacco smoke exposure: No Alcohol intake: current Drinks per week: 2 Substance use: never Substance use type: does not use Do You Feel Safe in your Home?: Yes Lack of Transportation: No Lack of Food: Never True Current Housing: I Have Housing Concerned About Future Housing: No Difficulty Paying Gas/Electric Bills: No Difficulty Paying for Meds: No Currently Unemployed: YES Education: Master's Degree or Higher Difficulty w/ Childcare or Family Care: No Living arrangements: with family Additional living arrangements comments: Occupation/Education: occupation 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[employer] Gender identity (if verbalized by the patient): Female Sexual Orientation (if Verbalized by the Patient): Straight or Heterosexual Spiritual care concerns: No Anes - Eval Final PreProcedure Day of Procedure 10/05/24 07:32 Patient weight: obese Heart: regular rate and rhythm Lungs: clear to auscultation Airway: Mallampati scale class II Neurological: alert and oriented Last oral intake: >/= 8 hours ASA classification: II Emergent: no Anesthetic plan: proceed Anesthesia type and monitoring: general GIVS and standard monitoring Results Review: All pre-operative results and documents have been reviewed as part of the pre-operative evaluation. Informed Consent: The patient's anesthetic plan and its attendant risks and benefits were discussed with the patient/family/POA. Questions were solicited and answers provided to the satisfaction of the patient/family/POA.
[2024-10-05 08:05] VITALS: BP 122/84; PULSE 74; RESP 18; TEMP 36.2; O2SAT 99
[2024-10-05] MEDS: LACTATED RINGERS 1,000 ML 150 ML IV CONT (08:15)
--- NOTE | 2024-10-05 08:32 | P.HP_ITS ---
History of Present Illness History of Present Illness Consent: Risks, benefits, and alternatives have been discussed and questions answered. Patient agrees to proceed with procedure. Chief complaint: Hx of polyps Narrative: Marcela Girard is a 59 year old female with colon polyp in 2021 Review of Systems Review of Systems: All systems reviewed & are unremarkable except as noted in HPI and below PMFSH Past Medical History Medical History (Updated 10/05/24 @ 08:34 by Raleigh Montez MD) Adenomatous colon polyp Anxiety Fatigue Calculus of gallbladder with chronic cholecystitis Vitamin D deficiency Hyperbilirubinemia Gastroesophageal reflux disease without esophagitis Breast mass, left Breast lesion on mammography Acute non-recurrent maxillary sinusitis Abnormal LFTs Depression Surgical History Surgical History S/P cholecystectomy Family History Family History Sibling Family history of pancreatic cancer Father Family history of cardiovascular disease Mother Family history of pancreatic cancer, Onset Age: 74 Social History Social History Social History: Patient drinks caffeine once daily. Smoking status: Never smoker Second hand tobacco smoke exposure: No Alcohol intake: current Drinks per week: 2 Substance use: never Substance use type: does not use Do You Feel Safe in your Home?: Yes Lack of Transportation: No Lack of Food: Never True Current Housing: I Have Housing Concerned About Future Housing: No Difficulty Paying Gas/Electric Bills: No Difficulty Paying for Meds: No Currently Unemployed: YES Education: Master's Degree or Higher Difficulty w/ Childcare or Family Care: No Living arrangements: with family Additional living arrangements comments: Occupation/Education: occupation 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[employer] Gender identity (if verbalized by the patient): Female Sexual Orientation (if Verbalized by the Patient): Straight or Heterosexual Spiritual care concerns: No Meds Home Medications and Allergies Home Medications Medication Instructions Recorded Confirmed Type tirzepatide (weight loss) 7.5 7.5 mg (0.5 mL) subcut WEEKLY #2 mL 09/29/24 10/05/24 Rx mg/0.5 mL subcutaneous pen injector (Zepbound) Allergies Allergy/AdvReac Type Severity Reaction Status Date / Time No Known Allergies Allergy Unknown Verified 10/05/24 08:04 Vital Signs Vital Signs - 24 hr 10/05/24 08:05 Temperature 97.1 F L Pulse Rate 74 Respiratory Rate 18 Blood Pressure 122/84 Pulse Oximetry 99 Oxygen Delivery Room Air Exam Const: General: comfortable and no acute distress HENMT: Face/Nose/Sinus: Normal nares present Eyes: General: appearance normal, both eyes and all related structures Neck: Neck: no JVD Resp: Auscultation: clear to auscultation bilaterally Cardio: Rate: regular rate Rhythm: regular rhythm GI: Inspection: non-distended GI Palp: Yes Soft to palpation Skin: General skin exam: normal color Neuro: General: gait normal Speech: normal speech Extrem: General: normal to inspection Psych: Mental Status: mental status grossly normal Assessment and Plan Assessment and plan (1) Adenomatous colon polyp: Code(s): D12.6 - Benign neoplasm of colon, unspecified Status: Acute Assessment and Plan: colonoscopy
[2024-10-05 08:48] VITALS: BP 102/46; PULSE 69; RESP 19; O2SAT 97
[2024-10-05 08:58] VITALS: BP 103/58; PULSE 65; RESP 17; O2SAT 98
[2024-10-05 09:08] VITALS: BP 108/57; PULSE 66; RESP 19; O2SAT 98
== END 2024-10-05 09:16 | disposition home or self-care (01) ==
PROVIDERS: PCP Emergency Medicine; Referring Provider Internal Medicine Gastroenterology; Visit Provider Internal Medicine Gastroenterology
PROC: 0DJD8ZZ Inspection of Lower Intestinal Tract, Via Natural or Artificial Opening Endoscopic (ICD-10-PCS; CPT 45378; principal; 2024-10-05 09:00)
DX: Z12.11 Encounter for screening for malignant neoplasm of colon (principal); K63.5 Polyp of colon; E66.9 Obesity, unspecified; Z68.35 Body mass index [BMI] 35.0-35.9, adult
CPT/HCPCS: 45385; 88305; J2704; J7120